=== PATIENT | male | born 1965 | race Caucasian/White ===

== ENCOUNTER 2019-02-22 18:51 | Emergency (ER) | payer OTHER ==
[~2019-02-22] VITALS: Ht 185.4 cm; Wt 95.3 kg
[2019-02-22] MEDS ORDERED: CEPHALEXIN500 M1 PO ×2 (20:24→20:35)
== END 2019-02-22 20:33 | disposition home or self-care (01) ==
LOC: ED 18:51
DX: S61.012A Laceration without foreign body of left thumb without damage to nail, initial encounter (principal); Z23 Encounter for immunization; W29.8XXA Contact with other powered hand tools and household machinery, initial encounter; Y93.89 Activity, other specified; Y92.89 Other specified places as the place of occurrence of the external cause; Y99.8 Other external cause status

== ENCOUNTER 2022-04-17 08:27 | Emergency (ER) | payer OTHER ==
[~2022-04-17 08:27] MED LIST: CEPHALEXIN500 M1 PO
[2022-04-17] MEDS ORDERED: CEPHALEXIN500 M1 PO (09:28)
== END 2022-04-17 09:52 | disposition home or self-care (01) ==
LOC: ED 08:27
DX: S61.210A Laceration without foreign body of right index finger without damage to nail, initial encounter (principal); W27.0XXA Contact with workbench tool, initial encounter; Y93.89 Activity, other specified; Y92.009 Unspecified place in unspecified non-institutional (private) residence as the place of occurrence of the external cause; Y99.8 Other external cause status